=== PATIENT | female | born 1990 | race Caucasian/White ===

== ENCOUNTER → 2024-08-03 11:52 | Outpatient (BNVA) | payer OTHER, SELFPAY | PROVIDERS: Visit Provider Nurse Practitioner | DX: E78.1 Pure hyperglyceridemia (principal); E11.9 Type 2 diabetes mellitus without complications | CPT/HCPCS: 80053; 80061; 83721; 85025 ==

== ENCOUNTER → 2024-09-05 11:44 | Outpatient (BNVA) | payer OTHER, SELFPAY | PROVIDERS: PCP Nurse Practitioner; Visit Provider Nurse Practitioner | DX: E78.00 Pure hypercholesterolemia, unspecified (principal); E78.1 Pure hyperglyceridemia; R53.83 Other fatigue | CPT/HCPCS: 80053; 80061; 85025 ==